=== PATIENT | female | born 1950 | race Caucasian/White ===

== ENCOUNTER 2018-01-03 11:37 | Outpatient (CLI) | payer MEDICARE, OTHER ==
--- NOTE | 2018-01-03 14:42 | XRAY Report ---
CHEST X-RAY TWO VIEWS: 01/03/2018 HISTORY: Cough, former smoker. COMPARISON: 06/26/2014. FINDINGS: The heart size is normal. The lungs are clear. There is no pleural fluid or pneumothorax. Mild age related changes in the spine. IMPRESSION: NEGATIVE TWO VIEW CHEST X-RAY. NO ACUTE FINDINGS COMPARED WITH 06/26/2014. TD: 01/03/2018 14:41
== END 2018-01-03 11:38 | disposition home or self-care (01) ==
LOC: DI.S 11:37
PROVIDERS: ATTEND Physician Assistant
DX: R05 Cough (principal); Z87.891 Personal history of nicotine dependence
CPT/HCPCS: 71046

== ENCOUNTER 2022-03-07 17:06 | Observation (INO) | payer MEDICARE, OTHER ==
[2022-03-07] MEDS ORDERED: diltiaZEM INJ 5 MG/ML VIAL ONE ×2 (17:55→19:50)
[2022-03-07] MEDS ORDERED: METOPROLOL 5 MG/5 ML VIAL IVP ONE (18:44)
[2022-03-07] MEDS ORDERED: SODIUM CHLORIDE 0.9% 500 ML IV ONE (22:26)
[2022-03-07] MEDS ORDERED: diltiaZEM CD 120 MG CAPSULE PO ONE (23:18)
[2022-03-07] MEDS ORDERED: APIXABAN 5 MG TABLET ONE (23:18)
[2022-03-08] MEDS ORDERED: diltiaZEM CD 120 MG CAPSULE PO ONE (09:31)
[2022-03-08] MEDS ORDERED: APIXABAN 5 MG TABLET ONE (09:32)
[2022-03-08 20:48] LABS: BASOPHILS % (AUTO) 0.4 %; EOSINOPHILS # (AUTO) 0.1 10^3/uL (0.0-0.7); EOSINOPHILS % (AUTO) 0.9 %; HCT - HEMATOCRIT 41.9 % (37.0-47.0); HGB - HEMOGLOBIN 13.9 g/dL (12.0-16.0); LYMPHOCYTES % (AUTO) 10.2 %; MEAN CORPUSCULAR HEMOGLOBIN 30.7 pg (27.0-31.0); MEAN CORPUSCULAR HGB CONC 33.2 g/dL (32.0-36.0); MEAN CORPUSCULAR VOLUME 92.5 fL (81.0-99.0); MEAN PLATELET VOLUME 9.7 fL (7.9-10.8); MONOCYTES # (AUTO) 0.9 10^3/uL (0.0-1.0); NEUTROPHILS # (AUTO) 7.6 10^3/uL (1.5-6.6); NEUTROPHILS % (AUTO) 78.9 %; PLT - PLATELET COUNT 305 10^3/uL (130-450); RED BLOOD COUNT 4.53 10^6/uL (4.20-5.40); RED CELL DISTRIBUTION WIDTH 12.6 % (12.0-15.0); WHITE BLOOD COUNT 9.6 x10^3/uL (4.8-10.8)
[2022-03-08 20:51] LABS: ALBUMIN 4.3 g/dL (3.2-5.5); ALBUMIN/GLOBULIN RATIO 1.3 (1.0-2.2); BILIRUBIN,TOTAL 0.6 mg/dL (0.2-1.0); CALCIUM 9.6 mg/dL (8.5-10.3); CREATININE 0.9 mg/dL (0.4-1.0); POTASSIUM 3.5 mmol/L (3.5-5.0); TOTAL PROTEIN 7.5 g/dL (6.7-8.2)
[2022-03-08 20:56] LABS: B. PARAPERTUSSIS- RESP PCR PAN NOT DETECTED; B. PERTUSSIS- RESP PCR PANEL NOT DETECTED; C. PNEUMONIAE- RESP PCR PANEL NOT DETECTED; CORONAVIRUS 229E-RESP PCR NOT DETECTED; CORONAVIRUS HKU1-RESP PCR NOT DETECTED; CORONAVIRUS NL63-RESP PCR NOT DETECTED; CORONAVIRUS OC43-RESP PCR NOT DETECTED; HUMAN METAPNEUMOVIRUS NOT DETECTED; INFLUENZA A- RESP PCR PANEL NOT DETECTED; INFLUENZA B - RESP PCR PANEL NOT DETECTED; M. PNEUMONIAE- RESP PCR PANEL NOT DETECTED; PARAINFLUENZA VIRUS 1 NOT DETECTED; PARAINFLUENZA VIRUS 2 NOT DETECTED; PARAINFLUENZA VIRUS 3 NOT DETECTED; PARAINFLUENZA VIRUS 4 NOT DETECTED; RHINOVIRUS/ENTEROVIRUS NOT DETECTED; RSV- RESP PCR PANEL NOT DETECTED; SARS-CoV-2 -RESP PCR PANEL NOT DETECTED
--- NOTE | 2022-03-09 14:57 | XRAY Report ---
PROCEDURE: CHEST 1 View INDICATIONS: NEW AFIB/ CHEST PAIN PRIORS: 01/03/2018 TECHNIQUE: 1 view of the chest is obtained. COMPARISON: Chest x-ray dated 01/03/2018 FINDINGS: No evidence of pneumonia nor edema. No pleural effusions or pneumothoraces. Heart size is within norm al limits. Osseous structures are grossly unremarkable. IMPRESSION: No acute process. Reviewed by: Fly Vigil MD on 03/07/2022 7:37 PM PDT Approved by: Fly Vigil MD on 03/07/2022 7:37 PM PDT Station ID: [id number]
--- NOTE | 2022-03-11 00:09 | DISCHARGE SUMMARY ---
"Discharge Summary Admit Date: 03/07/22 Discharge Date: 03/08/22 Discharging Provider: Georgina Bailey MD Primary Care Provider: Buffy Aldridge Code Status: Attempt Resuscitation Discharge Disposition: 01 Home, Self Care - DIAGNOSES Discharge Diagnoses with Status of Each Condition: 1. New onset atrial fibrillation with rapid ventricular response 2. Osteoarthritis 3. DVT prophylaxis 4. Full CODE STATUS - HPI History of Present Illness: She has had palpitations for over 2 years. Sister was recently diagnosed with atrial flutter and received ablation. Grandmother also has atrial fibrillation. She came to the emergency room because she was referred there by her primary care provider. That day she had palpitations that were lasting longer than usual. She went to see her PCP who diagnosed her with A. fib and sent her to the ED. In our emergency room she received diltiazem and Lopressor. Put on a diltiazem drip and transferred to the ICU. - CONSULTS | PROCEDURES Procedures: Echocardiogram with left ventricular size normal. Ejection fraction 65%. Impaired relaxation consistent with grade 1 diastolic dysfunction. Right ventricle size normal and ejection fraction normal. Left atrial and right atrial size were also normal. Valves were all normal. - HOSPITAL COURSE Hospital Course: A long complicated conversation ensued about anticoagulation because of her CHADS2 score of 2. She cannot afford Eliquis or Xarelto and preferred Coumadin. But at the last second changed her mind and decided she wanted to pay for Xarelto because she did not want a deal with Coumadin. She converted to sinus rhythm on her own. TSH is normal. Troponins negative. An echocardiogram was done and showed her left atrium to be normal size. No valvular heart disease. She needs to be followed up by her primary care provider for the anticoagulatio n. She also needs to be referred for stress test. She would like to be considered for ablation by the same counselor dormitory that saw her sister at [facility]. At discharge she was an awake, alert female who looked her stated age.Telemetry showed sinus rhythm. She was normotensive slightly hypotensive. Normal room air sats. She is an awake alert middle-aged female who looks her stated age. Neck was supple. Lungs were clear. No respiratory distress. Regular rate and rhythm. Abdomen benign. She is ambulating in the room without assistance. She is discharged in stable condition.She is discharged on Cardizem CD 120 mg a day. Initially she was discharged on Coumadin with instructions on how to follow-up with her PCP and dose adjustment. However she would like to go home on Eliquis and that was written by Dr. Miller. - LABS Result Diagrams: 03/07/22 17:45 03/07/22 17:45"
== END 2022-03-08 12:15 | disposition home or self-care (01) ==
LOC: ED 17:06 → ICU 20:20 → UNDOADMIN 03-08 07:15 → ICU 03-08 07:15 → UNDODISIN 03-08 12:15
PROVIDERS: ADMIT Specialist; ATTEND Specialist
DX: I48.91 Unspecified atrial fibrillation (principal); K21.9 Gastro-esophageal reflux disease without esophagitis; M19.90 Unspecified osteoarthritis, unspecified site; Z87.891 Personal history of nicotine dependence; Z79.899 Other long term (current) drug therapy; Z20.822 Contact with and (suspected) exposure to COVID-19; N39.41 Urge incontinence
CPT/HCPCS: 36415; 71045; 80053; 83690; 84484; 85025; 87150; 87633; 93005; 96374; 96375; 96376; 99285; A9270; G0378; 85610

== ENCOUNTER 2023-07-06 12:33 | Outpatient (CLI) | payer MEDICARE, OTHER ==
--- NOTE | 2023-07-06 15:03 | Ultrasound Report ---
PROCEDURE: Duplex Ext Veins Right INDICATIONS: RIGHT CALF PAIN TECHNIQUE: Real-time imaging, as well as color and pulse Doppler interrogation, were performed of the lower extr emity deep veins from the inguinal ligament to the popliteal fossa. Attempted visualization of the ca lf veins was performed. COMPARISON: None. FINDINGS: The visualized deep veins are normally compressible, and free of intraluminal thrombus. C olor and pulse Doppler demonstrate normal phasic intraluminal flow. There is normal augmentation res ponse to distal compression maneuver. IMPRESSION: No deep venous thrombosis of the visualized right lower extremity. Reviewed by: Marco Jameson MD on 07/06/2023 3:02 PM PDT Approved by: Marco Jameson MD on 07/06/2023 3:02 PM PDT Station ID: [id number]
== END 2023-07-06 12:34 | disposition home or self-care (01) ==
LOC: DI 12:33
PROVIDERS: ATTEND Physician Assistant
DX: M79.661 Pain in right lower leg (principal)